=== PATIENT | male | born 1960 | race Caucasian/White ===

== ENCOUNTER 2020-12-30 15:11 | Outpatient (RCR) | payer OTHER, SELFPAY ==
[2017-01-15 16:16] VITALS: BMI 31.8
[2020-12-30] MEDS: COVID-19 VACC, MRNA(PFIZER)/PF 30 MCG/0.3 ML SYRINGE IM (15:46)
[2021-01-20] MEDS: COVID-19 VACC, MRNA(PFIZER)/PF 30 MCG/0.3 ML SYRINGE IM (15:23)
== END 2020-12-30 23:59 ==
LOC: IMMUN 15:11
PROVIDERS: PCP Internal Medicine; Visit Provider Family Medicine
DX: Z23 Encounter for immunization (principal)
CPT/HCPCS: 0001A; 0002A; 91300

== ENCOUNTER → 2024-02-03 | Outpatient (CLI) | payer OTHER, SELFPAY ==
[2024-02-04 12:09] LABS: PSA, Free 0.89 ng/mL; PSA, Free % 20.9 % (.)
== END | disposition home or self-care (01) ==
LOC: LAB 09:21
PROVIDERS: PCP Internal Medicine; Referring Provider Urology; Visit Provider Urology
DX: R97.20 Elevated prostate specific antigen [PSA] (principal)
CPT/HCPCS: 36415; 84153; 84154

== ENCOUNTER → 2024-09-01 | Outpatient (CLI) | payer OTHER, SELFPAY ==
--- NOTE | 2024-09-01 08:44 | BD_ITS ---
STUDY: DUAL ENERGY X-RAY ABSORPTIOMETRY / DXA REASON FOR EXAM: Male, 64 years old. Z98.890 -- History of parathyroidectomy TECHNIQUE: Bone Mineral Density (BMD) measurements of lumbar spine and bilateral hips were obtained. COMPARISON: None. FINDINGS: Lumbar Spine (L1-L4): g/cm2 (1.273) / T-score (1.8) / Z-score (2.5) Findings are suggestive of normal bone density with a low fracture risk. Left Femur Total: g/cm2 (1.136) / T-score (0.7) / Z-score (1.2) Left Femoral Neck: g/cm2 (0.867) / T-score (-0.5) / Z-score (0.5) Right Femur Total: g/cm2 (1.206) / T-score (1.1) / Z-score (1.6) Right Femoral Neck: g/cm2 (0.936) / T-score (0.0) / Z-score (1.0) BD/Dexa Bone Density Study IMPRESSION: The patient is considered normal as outlined below according to World Onur Organization (WHO) criteria with a low fracture risk. Reference Information: The T-score is the number of standard deviations above or below the standard which is normal for young adults at their peak bone mineral density. The World Health Organization (WHO) interprets the T-scores as follows: Above -1 Normal bone density Between -1 and -2.5 Osteopenia Equal to / or below -2.5 Osteoporosis As a practical clinical guideline, osteopenia may be graded as follows: Mild -1 through -1.5 Moderate -1.6 through -2.0 Severe -2.1 through -2.4 The Z-score is the number of standard deviations above or below age-matched controls. A Z-score of less than -1.5 would be considered abnormal. References: 1. NIH Osteoporosis and Related Bone Diseases www osteo.org 2. International Society for Clinical Densitometry www iscd.org 3. National Osteoporosis Foundation www nof.org Electronically Signed: Florentin Herrera MD at 13:19 EST ,
== END | disposition home or self-care (01) ==
LOC: OPBD 08:40
PROVIDERS: PCP Internal Medicine; Referring Provider Nurse Practitioner Family; Visit Provider Nurse Practitioner Family
DX: Z98.890 Other specified postprocedural states (principal)
CPT/HCPCS: 77080

== ENCOUNTER → 2025-01-20 | Outpatient (CLI) | payer OTHER, SELFPAY ==
[2025-01-20 14:19] LABS: PSA,Total- Diagnostic 5.87 ng/mL (0.00-4.00)
== END | disposition home or self-care (01) ==
LOC: LAB 12:33
PROVIDERS: PCP Internal Medicine; Referring Provider Nurse Practitioner; Visit Provider Nurse Practitioner
DX: R97.20 Elevated prostate specific antigen [PSA] (principal)
CPT/HCPCS: 36415; 84153

== ENCOUNTER → 2025-02-24 | Outpatient (CLI) | payer OTHER, SELFPAY ==
--- NOTE | 2025-02-24 11:03 | MRI_ITS ---
PROCEDURE: PELVIS W/WO CONTRAST, 02/24/2025 REASON FOR EXAM: ELEVATED PSA- PLEASE JOSE SUSPICIOUS LESIONS, USE PIRADS SCORING. PSA reportedly 5.87 on 01/20/2025. TECHNIQUE: Multisequence multiplanar MRI pelvis was performed with and without IV contrast. IV Contrast: 17 mL Clariscan COMPARISON: None FINDINGS: Mild artifact arising from bowel gas involving the posteromedial most peripheral zone on diffusion. Variable overall mild motion limitation. Prostate size: 5.8 x 5.1 x 6.0 cm, estimated volume 92 mL. Per the above provided PSA, PSA density is 0.064 ng/mL. T2 dark and intrinsically T1 bright material in the LEFT posterolateral transition zone of uncertain significance in the absence of a history of previous biopsy, possible proteinaceous material. Transition zone: PI-RADS 2 findings. Peripheral Zone: Background changes of likely prostatitis (PI-RADS 2). Neurovascular bundles: Unremarkable. Seminal vesicles: Unremarkable. Bladder: Mass-effect by the enlarged prostate with mild intraluminal protrusion of exophytic transition zone parenchyma. Mild wall thickening without significant trabeculation, possible mild chronic bladder outlet obstruction. Lymph nodes: Borderline proximal RIGHT external iliac node by PI-RADS criteria, 8 mm short axis. Mildly prominent distal external iliac nodes up to 6 mm short axis on the RIGHT. Bones: No destructive or frankly suspicious bony lesions identified. Lumbar facet arthropathy. Presumably degenerative subarticular foci of enhancement along the bilateral acetabula, [id number]. Other: Small RIGHT and tiny LEFT fat containing inguinal hernias. Minimally imaged at least trace RIGHT hydrocele. Suspect vasectomy. Diverticulosis. MRI/Pelvis W/WO Contrast IMPRESSION: 1. Prostatomegaly/BPH and sequela of likely prostatitis without high risk lesio n identified (PI-RADS 2). 2. Borderline proximal RIGHT iliac node by PI-RADS criteria, nonspecific in the absence of known prostatic malignancy and potentially reactive. 3. Additional description as above. Reading Location: [id number]
== END | disposition home or self-care (01) ==
PROVIDERS: PCP Internal Medicine; Referring Provider Urology; Visit Provider Urology
DX: R97.20 Elevated prostate specific antigen [PSA] (principal)
CPT/HCPCS: 72197; A9575; A4216